=== PATIENT | male | born 1985 | race Caucasian/White ===

== ENCOUNTER 2016-04-21 05:34 | Emergency (ER) | payer BC, OTHER ==
[2016-04-21] MEDS ORDERED: TETRACAINE 0.5% OPHTH DROPS 15 ML BTL LEFT EYE STA (07:30)
[2016-04-21] MEDS ORDERED: POLYMYXIN B-TRIMETHOPRIM (10,000-1) OPHTH DROPS 10 ML BTL LEFT EYE STA (08:24)
--- NOTE | 2016-04-21 08:24 | ED ---
Eye Problem HPI - General Chief complaint: Eye Problems Stated complaint: left eye injury Time Seen by Provider: 04/21/16 07:19 Source: patient, family Mode of arrival: ambulatory Limitations: no limitations - History of Present Illness Initial comments: This patient is a 30-year-old man who presents with about 2 days of burning type left eye pain. The patient states that it started proximal 2 days ago when he took out the contact lens that he was wearing. He also noticed that there was little bit of redness. He states that he tried to wear the contact the next day and it was causing irritation. The patient states that it feels like there may be something under the left lid. Patient denies doing any type of grinding or high-speed drilling. Patient states that the vision seems a little blurry but not much worse than usual. He has had a little bit of tearing. Patient denies fever or chills. No headache. MD chief complaint: eye pain Onset/Timin -: days(s) Location: left eye Place: home If Injury: none Eye Symptoms: pain, foreign body sensation Severity: moderate Consistency: constant Treatments Prior to Arrival: removed contact lens - Related Data Home Medications Medication Instructions Recorded Confirmed No Known Home Medications [No 04/21/16 04/21/16 Known Home Medications] Allergies Allergy/AdvReac Type Severity Reaction Status Date / Time No Known Allergies Allergy Verified 04/21/16 05:57 Review of Systems ROS Statement: Those systems with pertinent positive or pertinent negative responses have been documented in the HPI. ROS Other: All systems not noted in ROS Statement are negative. Constitutional: Denies: fever, chills Eyes: Reports: as per HPI, eye pain, eye discharge ENT: Denies: congestion Respiratory: Denies: cough, dyspnea Neurological: Denies: headache Past Medical History Past Medical History: No Reported History History of Any Multi-Drug Resistant Organisms: None Reported Past Surgical History: Tonsillectomy Past Psychological History: No Psychological Hx Reported Smoking Status: Never smoker Past Alcohol Use History: Rare Past Drug Use History: Marijuana General Exam Limitations: no limitations General appearance: alert, in no apparent distress Head exam: Present: atraumatic, normocephalic, normal inspection Eye exam: Present: PERRL, EOMI, conjunctival injection (Left). Absent: scleral icterus, nystagmus, periorbital swelling, periorbital tenderness Pupils: Present: other (His left corneal abrasion at approximately 1 o'clock position. No corneal ulceration) Expanded Eyelids: Normal Inspection: Left Pupils: Regular, Round: Left, Reactive: Left Sclera/Conjunctival: Injection: Left (Conjunctival injection) Anterior chamber: Normal Inspection: Left Posterior chamber: Normal Inspection: Left Course Vital Signs 04/21/16 05:54 Temperature 98.5 F Pulse Rate 60 Respiratory 20 Rate Blood Pressure 113/62 O2 Sat by Pulse 100 Oximetry Medical Decision Making - Medical Decision Making Patient's a 30-year-old man who presents with left eye irritation and found to have corneal abrasion. Discussed the importance of not using contact lenses until he is cleared. Patient will have antibiotics to prevent secondary infection and follow with ophthalmology. Discussed return parameters. Disposition Clinical Impression: Corneal abrasion Disposition: HOME SELF-CARE Condition: Good Instructions: Abrasion (ED) Referrals: Bull Cruz MD [Primary Care Provider] - 1-2 days Tim Tyson MD [STAFF PHYSICIAN] - 1-2 days
[2016-04-21 08:56] VITALS: BP 128/62; PULSE 78; RESP 18; TEMP 98
== END 2016-04-21 08:56 | disposition home or self-care (01) ==
LOC: EC 05:34
DX: S05.02XA Injury of conjunctiva and corneal abrasion without foreign body, left eye, initial encounter (principal); X58.XXXA Exposure to other specified factors, initial encounter
CPT/HCPCS: 99283

== ENCOUNTER → 2018-05-02 | Outpatient (CLI) | payer BC ==
--- NOTE | 2018-05-02 19:30 | US ---
EXAMINATION TYPE: US kidneys/renal and bladder DATE OF EXAM: 05/02/2018 COMPARISON: CLINICAL HISTORY: N20.0 Kidney Stone. hx of renal stones, no pain EXAM MEASUREMENTS: Right Kidney: 9.1 x 5.2 x 4.4 cm Left Kidney: 9.9 x 5.6 x 5.9 cm Right Kidney: No hydronephrosis or masses seen Left Kidney: Dromedary hump seen, wnl Bladder: distended, wnl Bilateral Jets seen There is no evidence for hydronephrosis at this point in time. No nephrolithiasis is seen. No antonino s are identified. The urinary bladder is anechoic. Bilateral ureteral jets are seen. IMPRESSION: Normal retroperitoneal sonogram exam. No renal mass or obstruction.
== END | disposition home or self-care (01) ==
LOC: RADUSMAIN 17:34
PROVIDERS: ATTEND Internal Medicine
DX: N20.0 Calculus of kidney (principal)
CPT/HCPCS: 76770